=== PATIENT | female | born 1995 | race African-American/Black ===

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

== ENCOUNTER 2017-04-07 01:03 | Emergency (ER) | payer MEDICAID ==
[~2017-04-07] VITALS: Ht 149.9 cm; Wt 53.2 kg
[~2017-04-07 01:03] MED LIST changes: +IBUP-232 PO; -LOPE2CAP PO; -ZOFR4TAB3 SL
[2017-04-07 01:06] VITALS: BP 123/63; PULSE 88; RESP 16; TEMP 97.8; O2SAT 99
[2017-04-07 02:30] LABS: BILIRUBIN, URINE NEG (NEG); BLOOD, URINE NEG (NEG); GLUCOSE,URINE NEG (NEG); KETONE, URINE 80 OR GREATER mg/dL (NEG); NITRITE,URINE NEG (NEG); PH, URINE 5.5 (5.0-8.5); URINE LEUKOCYTE ESTERASE NEG (NEG)
[2017-04-07 02:36] LABS: URINE COLOR YELLOW (YELLW/STRAW)
[2017-04-07 02:37] LABS: MUCUS URINE MOD /lpf (OCC)
[2017-04-07 02:38] LABS: BACTERIA, URINE FEW /hpf
[2017-04-07 02:39] LABS: WBC, URINE 0-2 /hpf (0-5)
--- NOTE | 2017-04-07 02:46 | PD ---
HPI . Abdominal pain Chief Complaint: Abdominal Pain Time Seen by Provider: 02:04 Travel History International Travel<30 days: No Contact w/Intl Traveler<30days: No Traveled to known affect area: No History of Present Illness HPI This patient presents with left lower quadrant abdominal pain. Onset was a couple of days ago. 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 There are no modifying factors. Her pain is mild to moderate. PFSH Past Medical History Hx Anticoagulant Therapy: No Cardiovascular Problems: No Chemotherapy: No Cerebrovascular Accident: No Developmental Delay: No Diabetes: No Diminished Hearing: No Respiratory: No Immunizations Current: Yes ?: Not Past Surgical History Hysterectomy: No Social History Alcohol Use: No Tobacco Use: No Substance Use: Yes (marijuana) Allergies-Medications (Allergen,Severity, Reaction): Coded Allergies: No Known Allergies (Verified Adverse Reaction, Unknown, 04/07/17) Reported Meds & Prescriptions Reported Meds & Active Scripts Active No Active Prescriptions or Reported Medications Review of Systems Except as stated in HPI: all other systems reviewed are Neg General / Constitutional: No: Fever, Chills Gastrointestinal: Positive: Abdominal Pain, No: Nausea, Vomiting, Diarrhea, Constipation Genitourinary: No: Urgency, Frequency, Dysuria, Discharge Physical Exam Narrative GENERAL: Awake and alert and in no distress. SKIN: warm/dry. HEAD: Normocephalic. EYES: Pupils equal and round. No scleral icterus. No injection or drainage. ENT: No nasal bleeding or discharge. Mucous membranes pink and moist. NECK: Trachea midline. Full range of motion without pain.. CARDIOVASCULAR: Regular rate and rhythm. RESPIRATORY: No accessory muscle use. Clear to auscultation. Breath sounds equal bilaterally. GASTROINTESTINAL: Abdomen soft. Nontender. Bowel sounds present. Nondistended. MUSCULOSKELETAL: No obvious deformities. NEUROLOGICAL: Awake and alert. No obvious cranial nerve deficits. Motor grossly within normal limits. Normal speech. PSYCHIATRIC: Appropriate mood and affect; insight and judgment normal. Data Data Last Documented VS Vital Signs Date Time Temp Pulse Resp B/P (MAP) Pulse Ox O2 Delivery O2 Flow Rate FiO2 04/07/17 01:06 97.8 88 16 123/63 (83) 99 Orders Orders Urinalysis - C+S If Indicated (04/07/17 02:04) Ed Urine Pregnancytest Poc (04/07/17 02:04) Labs Laboratory Tests Test 04/07/17 02:10 Urine Color YELLOW Urine Turbidity SLIGHT Urine pH 5.5 Urine Specific [place] 1.028 Urine Protein NEG mg/dL Urine Glucose (UA) NEG mg/dL Urine Ketones 80 OR GREATER mg/dL Urine Occult Blood NEG Urine Nitrite NEG Urine Bilirubin NEG Urine Leukocyte Esterase NEG Urine WBC 0-2 /hpf Urine Squamous Epithelial Cells 6-8 /hpf Urine Bacteria FEW /hpf Urine Mucus MOD /lpf Microscopic Urinalysis Comment CULT NOT INDICATED MDM Medical Decision Making Medical Screen Exam Complete: Yes Emergency Medical Condition: Yes Differential Diagnosis Differential diagnosis of abdominal pain includes but is not limited to gastritis, pancreatitis, hepatitis, gastroenteritis, gallbladder disease, constipation, urinary retention, UTI, peptic ulcer disease, diverticulitis or appendicitis Narrative Course This patient presents with left lower quadrant abdominal pain. Her physical exam is completely benign. UA and hCG are negative. The history, exam, diagnostic testing, and current condition do not suggest any significant pathology to warrant further testing, continued ED treatment, admission, or surgical evaluation at this point. No EMC was found. The patient 's condition is stable and appropriate for discharge. Diagnosis Primary Impression: Abdominal wall pain in left lower quadrant Patient Instructions: Abdominal Pain (ED), General Instructions Scripts No Active Prescriptions or Reported Meds Disposition: 01 DISCHARGE HOME Condition: Stable Mattie Stearns MD Apr 07, 2017 02:46
== END 2017-04-07 02:58 | disposition home or self-care (01) ==
LOC: PHED 01:03
DX: R10.32 Left lower quadrant pain (principal)
CPT/HCPCS: 81001; 84703; 99283